=== PATIENT | female | born 1955 | race Caucasian/White ===

== ENCOUNTER 2019-11-11 07:36 | Outpatient (CLI) | payer OTHER, SELFPAY ==
--- NOTE | 2019-11-17 22:52 | SLEEP_ITS ---
Home Sleep Test DATE OF STUDY: 11/11/2019 REASON FOR THIS STUDY: Known obstructive sleep apnea syndrome, increased hypersomnolence, patient has not used CPAP because it is not working properly. HISTORY: The patient is a 64-year-old female, 5 feet 4 inches tall, weighing 232 pounds with a body mass index of 39.8. She has a history of obstructive sleep apnea syndrome dating back to at least 2008. She had severe obstructive sleep apnea syndrome with an AHI of 34.4 with poor quality sleep, loud snoring, and disturbed daytime functioning on study on March 31, 2009. A CPAP titration on April 27, 2009, showed no optimal pressure. She returns for a repeat CPAP titration on 11/03/2010, with an optimal pressure of 7 cm, which corrected the majority of events and her loud snoring. She also had problems with elevated limb movements on the initial study and the CPAP titration. The patient has not worn her device for a long time because it has not been functioning well. She is having worsening hypersomnia and snoring. She has lost 50 pounds with diet and exercise over the last year, but still has an elevated body mass index. The patient did not complete a new survey, but on her prior survey, her complaints included excessive daytime sleepiness, loud snoring, occasional anxiety, hypertension, acid reflux, and asthma. MEDICATIONS: 1. Flonase 1 spray each nostril twice a day. 2. Xanax 0.5 mg b.i.d. 3. Retin-A gel topically at bedtime. 4. Glucophage 500 mg b.i.d. with meals. 5. Cozaar 50 mg a day. 6. Albuterol 0.63 nebulizer p.r.n. 7. Symbicort 160/4.5 two puffs twice a day. 8. Aspirin 81 mg a day. HABITS: Previous history of tobacco. Caffeine is used. Alcohol, 2 drinks a week. DESCRIPTION OF THE STUDY: On the Panacea Sleepiness Scale, her score is 12. This was conducted as an unattended type 3 portable home sleep test using 4-channel monitoring including respiratory effort channel, snoring channel, oxygen saturation channel, and heart rate channel. This study was scored using [facility] guidelines. Duration of the study was 7 hours. The apnea-hypopnea index is 12.4. Oxygen desaturation index is 14.2 with a minimum desaturation of 69%. The mean saturation was 94%. She had 15 apneas. The majority of the apneas, 87% or 13 apneas were obstructive, 13% or 2 were central, and there were no mixed apneas. She had 72 hypopneas. She had 1407 snoring events. She had 114 desaturations and spent 8 minutes below 88% saturation, which is 2% of the study. Heart rate ranged from 54 to 116, elevated. IMPRESSION: 1. This home sleep study shows evidence of at least [id number] obstructive sleep apnea syndrome, G47.33, with mild number of central events, 13 events. She had constant loud snoring, 1470 events and desaturated to 69%, which is significantly low. She has a documented history of obstructive sleep apnea syndrome, which is severe in the past. Home sleep studies under represent the severity of sleep apnea as it assumes the patient is asleep the entire recording time which is not possible. The patient should have a titration in the lab as she did have some centrals 13%, but if insurance does not allow a titration in the lab, consider auto PAP. On a previous study, her optimal pressure was 7 cm. She did not have REM at that level. Consider closely auto PAP ranges. 2. Elevated body mass index of 39.8. The patient had a similar body mass index that was a little higher, 41.2 on her study in 2008. She was 240 pounds at that point, currently is 232 pounds, so she has lost weight. 3. Other medical comorbidities including hypertension, diabetes, asthma. She should not drive until daytime sleepiness resolves.
== END 2019-11-11 07:37 | disposition home or self-care (01) ==
LOC: ANHCSM 07:41
PROVIDERS: PCP Family Medicine; Visit Provider Internal Medicine Critical Care Medicine
DX: G47.33 Obstructive sleep apnea (adult) (pediatric) (principal)
CPT/HCPCS: 95806

== ENCOUNTER 2020-08-05 07:05 | Outpatient (NON) | payer OTHER, SELFPAY ==
[2020-08-05 18:30] LABS: SARS-CoV-2 RNA PCR Positive
== END 2020-08-05 07:06 ==
PROVIDERS: PCP Family Medicine; Visit Provider Physician Assistant
DX: U07.1 COVID-19 (principal)
CPT/HCPCS: 87635; C9803; U0003

== ENCOUNTER → 2020-12-13 17:05 | Outpatient (CLI) | payer OTHER, SELFPAY ==
--- NOTE | ~2020-12-13 | XR_ITS ---
XR chest 2V DATE: 12/13/2020 17:26 INDICATION: Acute exacerbation of moderate persistent asthma TECHNIQUE: 2 upright views COMPARISON: None FINDINGS: Heart size is within normal range. No hilar or mediastinal enlargement. Minimal focal infiltrate or atelectasis is suggested in the mid to upper right lung. The lungs otherw ise appear clear. No pleural effusion or pulmonary vascular congestion or pneumothorax. Diffuse idiopathic skeletal hyperostosis and mild dextro scoliosis of the thoracic spine. IMPRESSION: Focal minimal infiltrate or atelectasis in the right mid-upper lung Reviewed, dictated and finalized at location A.
== END ==
PROVIDERS: PCP Family Medicine
DX: J45.41 Moderate persistent asthma with (acute) exacerbation (principal)
CPT/HCPCS: 71046

== ENCOUNTER 2023-09-12 15:24 | Outpatient (CLI) | payer MEDICARE, SELFPAY ==
--- NOTE | ~2023-09-12 | XR_ITS ---
XR chest 2V DATE: 09/12/2023 15:36 INDICATION: Cough. Asthma. TECHNIQUE: PA and lateral views COMPARISON: December 13, 2020 2 view chest FINDINGS: Normal heart size. No hilar or mediastinal enlargement. No pulmonary infiltrate or consolid ation, pleural effusion or pulmonary vascular congestion or pneumothorax is detected. Dextroscoliosis and diffuse idiopathic skeletal hyperostosis of the thoracic spine. IMPRESSION: No active cardiopulmonary disease Reviewed, dictated and finalized at location B. DDER TENDER PEAT
== END 2023-09-12 15:25 | disposition home or self-care (01) ==
PROVIDERS: PCP Family Medicine; Visit Provider Family Medicine
DX: J45.909 Unspecified asthma, uncomplicated (principal)
CPT/HCPCS: 71046

== ENCOUNTER 2023-09-20 10:22 | Outpatient (CLI) | payer MEDICARE, SELFPAY ==
--- NOTE | 2023-09-21 11:42 | WPDPFTINT ---
PFT Procedure Performed PFT Procedure Performed Spirometry w/o Bronchodil PFT Interpretation Spirometry showed normal expiratory flow rates and a normal FEV1 to FVC ratio 73%. No post bronchodilator study carried out. The flow-volume loop is unremarkable. Impression: Spirometry within normal range.
== END 2023-09-20 10:23 | disposition home or self-care (01) ==
LOC: ANHPFT 10:23
PROVIDERS: PCP Family Medicine; Visit Provider Family Medicine
DX: J45.909 Unspecified asthma, uncomplicated (principal)
CPT/HCPCS: 94375

== ENCOUNTER 2023-09-27 11:03 | Outpatient (CLI) | payer MEDICARE, SELFPAY ==
--- NOTE | ~2023-09-27 | XR_ITS ---
Right Shoulder Technique: AP and scapular Y views were obtained. Clinical History: Pain Findings: No fracture or dislocation is seen. Osseous alignment is anatomic. There is mild degenerati ve change of the before meals and glenohumeral joints. Soft tissues are unremarkable. Impression: Mild degenerative changes, as above. Reviewed, dictated and finalized at location . [employer]NAGER Impression: Mild degenerative changes, as above.
== END 2023-09-27 11:04 | disposition home or self-care (01) ==
PROVIDERS: PCP Family Medicine; Visit Provider Orthopaedic Surgery
DX: M19.011 Primary osteoarthritis, right shoulder (principal)
CPT/HCPCS: 73030

== ENCOUNTER 2023-10-03 01:49 | Day surgery (SDC) | payer MEDICARE, SELFPAY ==
[2023-10-02 14:21] VITALS: BMI 44.6
[2023-10-03] VITALS (10 sets, daily range): BP systolic 104–142; BP diastolic 62–85; PULSE 57–84; RESP 14–18; TEMP 36.2–36.3; O2SAT 92–99; BMI 44.4
[2023-10-03 07:36] LABS: Basophils Percent Auto 0.2 % (0.2-1.2); Eosinophils Absolute Auto 0.4 K/mm3 (0-0.3); Eosinophils Percent Auto 5.4 % (0-4.4); Hematocrit 40.6 % (37.0-47.0); Hemoglobin 12.8 g/dL (12.0-15.0); Immature Granulocyte Absolute 0.02 K/mm3 (0.00-0.031); Immature Granulocyte Percent A 0.2 % (0-0.5); Lymphocytes Absolute Auto 2.61 K/mm3 (0.9-3.2); Lymphocytes Percent Auto 32.3 % (18.3-44.2); Mean Corpuscular HGB Conc 31.5 g/dl (32-36); Mean Corpuscular Hemoglobin 28.3 pg (26-34); Mean Corpuscular Volume 89.8 fl (80-100); Mean Platelet Volume 9.2 fl (7.4-10.4); Monocytes Absolute Auto 0.5 K/mm3 (0.1-0.6); Monocytes Percent Auto 6.4 % (2.6-8.5); Neutrophils Absolute Auto 4.5 K/mm3 (1.3-6.7); Neutrophils Percent Auto 55.5 % (45.5-73.1); Platelet Count Result 219 k/mm3 (150-375); Red Blood Count 4.52 M/mm3 (4.2-5.4); Red Cell Distribution Width 12.8 % (11.5-14.5); White Blood Count 8.1 K/mm3 (4.5-10.0)
[2023-10-03 07:55] LABS: Anion Gap 9 mmol/L (8-16); Blood Urea Nitrogen 22 mg/dL (7-17); Calcium 9.1 mg/dL (8.4-10.2); Carbon Dioxide 24 mmol/L (22-30); Chloride 105 mmol/L (98-107); Estimated CRCL calculation 74 ml/min; Estimated Glomerular Filt Rate > 60; Glucose 106 mg/dL (65-110); Potassium 3.9 mmol/L (3.4-5.0); Sodium 138 mmol/L (137-145)
[2023-10-03 07:56] LABS: Prothrombin Time 13.3 Seconds (11.1-14.7)
--- NOTE | 2023-10-03 10:31 | WPDHPUPDATE1 ---
History and Physical Update Update Date/Time: 10/03/23 10:31 History and Physical has been reviewed, including an updated exam of the patient. There are NO changes in the patient's condition. Risks, benefits, and alternatives have been discussed and questions answered. Patient agrees to proceed with procedure.
--- NOTE | 2023-10-03 10:32 | WPDMODSED ---
Moderate Sedation Note-Pt Data Patient Data Diagnosis: abnormal stress test, chest pain Present Complaint: none Procedure to be performed/Plan: left heart catheterization with selective left and right coronary angiography with left ventriculography and hemodynamics and possible percutaneous intervention and stent implantation Allergies Allergy/AdvReac Type Severity Reaction Status Date / Time ciprofloxacin Allergy Severe Hives Verified 10/03/23 07:31 Quinolones Allergy Severe Hives Verified 10/03/23 07:31 lisinopril Allergy Unknown Unknown Verified 10/03/23 07:31 nisoldipine Allergy Unknown Unknown Verified 10/03/23 07:31 Home Medications Medication Instructions Recorded Confirmed Type aspirin 81 mg tablet,delayed 81 mg PO HS 04/07/20 10/02/23 History release (Adult Aspirin Regimen) budesonide-formoterol HFA 160 2 puff inhalation Q12H #10.2 grams 09/20/22 10/02/23 Rx mcg-4.5 mcg/actuation aerosol inhaler (Symbicort) albuterol sulfate 90 mcg/actuation 1 puff inhalation Q4H PRN 08/16/23 10/02/23 Rx aerosol inhaler (ProAir HFA) bronchospasm #8.5 grams albuterol sulfate 2.5 mg/3 mL 2.5 mg inhalation Q4H PRN asthma 10/02/23 10/02/23 History (0.083 %) solution for nebulization alprazolam 0.5 mg tablet 0.5 mg PO TID PRN Anxiety 10/02/23 10/02/23 History clindamycin HCl 300 mg capsule 300 mg PO Q8H #30 caps 10/02/23 10/02/23 Rx losartan 50 mg tablet 50 mg PO HS 10/02/23 10/02/23 History sertraline 100 mg tablet 100 mg PO HS 10/02/23 10/02/23 History tirzepatide 2.5 mg/0.5 mL 2.5 mg subcut WEEKLY 10/02/23 10/02/23 History subcutaneous pen injector (Mounjaro) Current Medications: see list Sedation/Anesthesia: No previous sedation/anesthesia problems (including family history). [facility] Past Medical History Medical History Acute stress disorder Benign neoplasm of colon Essential (primary) hypertension Family history of malignant neoplasm of breast Hyperlipidemia, unspecified Obesity Obstructive sleep apnea (adult) (pediatric) Other obesity Prediabetes Unspecified asthma, uncomplicated Unspecified sleep apnea Varicose veins of lower extremity Surgical History Surgical History H/O: History of carpal tunnel release of both wrists Presence of right artificial knee joint Status post total knee replacement, right (~02/11/19) Family History Family History Father Family history of cardiovascular disease Asthma Mother Family history of malignant neoplasm of breast Hypertension Family history of malignant neoplasm of breast in first degree relative Other Depression Family history of allergic disorder Social History Social History Smoking packs per day: 1 Smoking cigarettes per day: 20.0 Years smoked: 8 Smoking pack-years: 8.00 Smoking status: Former smoker Tobacco type: cigarettes Smoking end date: 09/03/82 Alcohol intake: current Alcohol use details: 1-2 per month Substance use: never Do You Feel Safe in your Home?: Yes Lack of Transportation: No Lack of Food: Never True Current Housing: I Have Housing Concerned About Future Housing: No Difficulty Paying Gas/Electric Bills: No Difficulty Paying for Meds: No Currently Unemployed: No Education: Bachelor's Degree Difficulty w/ Childcare or Family Care: No Living arrangements: with family Spiritual care concerns: No Mod Sed Physical Exam Physical Exam Pre Procedural Exam: Normal: Appearance, Eyes, Ears, Nose, Neck ( thick, supple normal range of motion), Throat ( posterior hypopharynx clear, nonerythematous), Airway ( normal anatomy, no obstruction), Lungs ( clear to auscultation bilaterally), Heart Size, Heart Rate, Heart Rhythm, Neuro Exam, Liver, Extremitie
--- NOTE | 2023-10-03 11:24 | W.PM.PROC2 ---
Procedure Note - Detailed Date of Procedure 10/03/23 Pre-op Diagnosis abn stress test, SOB, fatigue, CP Post-op Diagnosis Same Procedure Performed left heart catheterization with selective left and right coronary angiography with left ventriculography and hemodynamics and selective right femoral angiography Surgeon Newton Alfaro MD Anesthesia Local and Other ( moderate sedation) Indications abnormal stress test, shortness of breath, chest pain Findings MODERATE SEDATION/ANESTHESIA ADMINISTRATION: Patient reports no prior problems with sedation/anesthesia. Please see pre-sedation noted for physical examination documentation. Sedation start time was 1046 and end time was 1113 for a total intra-service/procedure face-face time of 27 minutes. A total of 2 mg intravenous Versed and a total of 100 mcg intravenous Fentanyl in multiple divided doses was administered for moderate sedation. Moderate sedation was administered by qualified/certified observer , RN under my supervision with intra-procedure [id number] observation and management throughout the entirety of the procedure. There were no other issues or complications and patient tolerated the procedure well. See post-anesthesia documentation. CORONARY ANGIOGRAPHY: The LEFT MAIN arose from the left coronary cusp and was without angiographically significant disease. The left main then bifurcated into the left anterior descending artery and circumflex coronary artery. LEFT ANTERIOR DESCENDING ARTERY: moderate caliber vessel gives rise to moderate size 1st diagonal branch with proximal 30% stenosis and terminal vessel tortuosity without significant obstructive disease throughout the remainder of the vessel. CIRCUMFLEX CORONARY ARTERY: Moderate caliber nondominant vessel giving rise to moderate-sized 1st and 2nd obtuse marginal branches with mild luminal irregularity and mid 40% circumflex stenosis prior to continuation into the AV groove. RIGHT CORONARY ARTERY: Smaller caliber dominant vessel without angiographically significant disease give rise to small caliber posterolateral and posterior descending branches. LEFT VENTRICULOGRAPHY AND HEMODYNAMICS: Performed in the standard SHAH projection, the 5 German angled pigtail catheter was advanced retrograde across aortic valve into the cavity of the left ventricle. Left ventriculography was performed with visually estimated ejection fraction of 70-75 % without wall motion abnormalities. Pullback across the aortic valve was performed and recorded. Aortic valve: No hemodynamically significant aortic stenosis Mitral valve: no mitral regurgitation Left ventricular pressure: 131/20 mmHg Central aortic pressure: 130/60 mmHg SELECTIVE RIGHT FEMORAL ANGIOGRAPHY: Performed in the standard SHAH projection, a saline contrast mix was injected through the side-arm port of the 5 German arteriovascular access sheath which revealed the arteriotomy site to be proximal to the bifurcation in the right common femoral artery suitable for Angio-Seal closure device deployment. Subsequently, over the wire, the 5 German arteriovascular access sheath was then removed the 6 German Angio-Seal vascular closure device was then deployed easily without complication with excellent hemostasis. Manual pressure was held 5-10 minutes per protocol subsequently. Complications: None Conclusions: 1. Mild nonobstructive CAD with 30% proximal LAD and 40% mid circumflex stenosis 2. Moderate elevation left ventricular end-diastolic filling pressure consistent with diastolic dysfunction 3. Systemic hypertension 4. Preserved LV systolic function EF 70-75% without wall motion abnormalities 5. Successful deployment of 6 German Angio-Seal vascular closure device deployment to the right common femoral artery 6. No hemodynamically significant aortic stenosis or mitral valve regurgitation. Recommendations: 1. Aggressive secondary risk factor modification and optimi
[2023-10-03] MEDS: SODIUM CHLORIDE 0.9% IV 500 ML 125 ML (12:00)
== END 2023-10-03 14:55 | disposition home or self-care (01) ==
PROVIDERS: PCP Family Medicine; Visit Provider Internal Medicine Cardiovascular Disease
PROC: 4A023N7 Measurement of Cardiac Sampling and Pressure, Left Heart, Percutaneous Approach (ICD-10-PCS; CPT 93452; principal; 2023-10-03 08:30)
DX: I25.10 Atherosclerotic heart disease of native coronary artery without angina pectoris (principal); R94.39 Abnormal result of other cardiovascular function study; R07.9 Chest pain, unspecified; R06.02 Shortness of breath; I11.9 Hypertensive heart disease without heart failure; E78.5 Hyperlipidemia, unspecified; G47.33 Obstructive sleep apnea (adult) (pediatric); J45.909 Unspecified asthma, uncomplicated; R73.03 Prediabetes; Z87.891 Personal history of nicotine dependence; E66.01 Morbid (severe) obesity due to excess calories; Z68.41 Body mass index [BMI] 40.0-44.9, adult; Z79.51 Long term (current) use of inhaled steroids; Z79.82 Long term (current) use of aspirin; Z79.85 Long-term (current) use of injectable non-insulin antidiabetic drugs
CPT/HCPCS: 36415; 80048; 85025; 85610; 93458; C1760; C1887; C1894; G0269; J1644; J2250; J3010; J7040

== ENCOUNTER → 2023-11-20 00:20 | Day surgery (SDC) | payer MEDICARE, SELFPAY ==
[2023-11-09 13:14] VITALS: BMI 42.1
--- NOTE | 2023-11-09 13:28 | PC.NURSE ---
Report to the Outpatient Waiting Room, entrance under the green pavilion located off [facility], at time ___0830____ on date __11/20/23 . Planned Procedure Time: ___1030 . Time changes happen often and if your time is changed the preop area will call you the afternoon before. - You and your visitor will be asked to self-screen and do not enter if you have any COVID symptoms. - A mask is optional within the hospital at this time. Patients may have clear liquids (water, carbonated beverages, clear teas, apple juice) until 3 hours prior to surgery (0730 AM) with a maximum of 20 ounces. - No food from midnight until time of surgery - Infants may have breast milk until 4 hours before surgery, infant formula 6 hours prior to surgery. - Children will be allowed to drink immediately following surgery. If applicable, please bring a bottle or sippy cup to assist with drinking. Juice, water, soda, and popsicles are readily available. For infants on formula, please bring formula the day of surgery. Pacifiers are allowed. Take the following medications with a SIP of water the morning of surgery: _INHALERS & TYLENOL IF NEEDED DO NOT STOP ANY OF YOUR OTHER PRESCRIPTION MEDICATIONS PRIOR TO SURGERY ?EXCEPT THE FOLLOWING Medications to discontinue per LOUIE - _ASPIRIN 7 DAYS PRIOR TO SURGERY, Date to take last dose 11/12/23 Please no make-up, nail somali, hairspray, perfume, deodorant, or body powder the day of surgery. No jewelry (including any body piercings) or valuables the day of surgery, leave them at home. Please take a shower or bath the night before, or the morning of, surgery with an antibacterial soap. Wear comfortable, loose fitting clothing. Children are encouraged to wear pajamas. - Jewelry must be removed prior to entering the operating room. Rings and piercings that are not removed may be cut off. - The hospital will not accept responsibility for valuables. - Please leave all valuables, including medications, at home the day of surgery. If you are going home after surgery, a licensed tow truck driver must drive you home. - NO public transportation without another adult if you receive anesthesia. - We recommend that an adult stay with you for 24 hours following discharge. - We also recommend that you do not drive, make important decision, drink alcoholic beverages, or take any drugs that were not prescribed by your health care provider for at least 24 hours after your discharge time. For Pediatric surgeries, we recommend two adults accompany the child home. Follow any additional instructions given to you from your surgeon. If you or anyone in your household have experienced Covid symptoms in the past week, please notify your surgeon or the nurse liaison at the phone number below for possible testing. Telephone instructions given to ____PT and asked if any additional questions and then verbalized understanding. Patient advised to call surgeon office or pre surgery nurse liaison [phone] if any additional questions.
[2023-11-20] VITALS (15 sets, daily range): BP systolic 149–185; BP diastolic 68–89; PULSE 80–97; RESP 12–15; TEMP 36.1; O2SAT 94–100
--- NOTE | 2023-11-20 07:08 | WPDHPUPDATE1 ---
History and Physical Update Update Date/Time: 11/20/23 07:08 History and Physical has been reviewed, including an updated exam of the patient. There are NO changes in the patient's condition. Risks, benefits, and alternatives have been discussed and questions answered. Patient agrees to proceed with procedure.
[2023-11-20] MEDS: KETOROLAC 15 MG/ML VIAL (*BKC) IV PUSH ×2 (09:20→15:40)
[2023-11-20] MEDS: LACTATED RINGERS 1,000 ML 30 ML IV CONT ×3 (09:20→13:50)
[2023-11-20 09:22] LABS: Glucose Point of Care 102 mg/dl (65-105)
--- NOTE | 2023-11-20 09:23 | WPDANESEPPF ---
Anes - Initial Pre Proc Eval Procedure: Operation Date: 11/20/23 10:30 Proposed Procedures p Right Shoulder Arthroscopic Rotator Cuff Repair - Fermín Silveira MD Date/Time: 11/20/23 09:23 Surgeon: Fermín Silveira MD Pre Op Diagnosis: right shoulder rotator cuff tear Patient Data Age: 68 Gender: F Height: 1.63 m Weight: 111.36 kg Allergies Allergy/AdvReac Type Severity Reaction Status Date / Time ciprofloxacin Allergy Severe Hives Verified 11/16/23 10:10 Quinolones Allergy Severe Hives Verified 11/16/23 10:10 lisinopril Allergy Unknown Unknown-UNABLE Verified 11/16/23 10:10 TO RECALL nisoldipine Allergy Unknown Unknown-HAPPENED Verified 11/16/23 10:10 30 YRS AGO/UNABLE TO RECALL Home Medications Medication Instructions Recorded Confirmed Type aspirin 81 mg tablet,delayed 81 mg PO HS 04/07/20 11/16/23 History release (Adult Aspirin Regimen) losartan 50 mg tablet 50 mg PO HS 10/02/23 11/16/23 History sertraline 100 mg tablet 100 mg PO HS 10/02/23 11/16/23 History tirzepatide 2.5 mg/0.5 mL 2.5 mg subcut WEEKLY 10/02/23 11/16/23 History subcutaneous pen injector (Mounjaro) atorvastatin 40 mg tablet 40 mg PO HS #30 tabs 10/03/23 11/16/23 Rx albuterol sulfate 2.5 mg/3 mL 2.5 mg (3 mL) inhalation Q4H PRN 10/31/23 11/16/23 Rx (0.083 %) solution for nebulization asthma #180 mL acetaminophen 500 mg tablet 1,000 mg PO QID PRN Pain 11/09/23 11/16/23 History budesonide-formoterol HFA 160 2 puff inhalation Q12H PRN Wheezing 11/09/23 11/16/23 History mcg-4.5 mcg/actuation aerosol inhaler (Symbicort) alprazolam 0.5 mg tablet 0.5 mg PO DAILY 11/16/23 11/16/23 History oxycodone-acetaminophen 5 mg-325 1 - 2 tablet PO Q4-6H PRN pain #30 11/20/23 Rx mg tablet tabs Laboratory Tests 11/20/23 09:17 POC Capillary Glucose 102 mg/dl (65-105) Patient hx anesthesia problems: none Family hx anesthesia problems: none Results Review: All pre-operative results and documents have been reviewed as part of the pre-operative evaluation. [facility] Past Medical History Medical History Acute stress disorder Benign neoplasm of colon Essential (primary) hypertension Family history of malignant neoplasm of breast Hyperlipidemia, unspecified Obesity Obstructive sleep apnea (adult) (pediatric) Other obesity Prediabetes Unspecified asthma, uncomplicated Unspecified sleep apnea Varicose veins of lower extremity Surgical History Surgical History H/O: History of cardiac cath History of carpal tunnel release of both wrists Presence of right artificial knee joint Status post total knee replacement, right (~02/11/19) Family History Family History Father Family history of cardiovascular disease Asthma Mother Family history of malignant neoplasm of breast Hypertension Family history of malignant neoplasm of breast in first degree relative Other Depression Family history of allergic disorder Social History Social History Smoking packs per day: 1 Smoking cigarettes per day: 20.0 Years smoked: 8 Smoking pack-years: 8.00 Smoking status: Former smoker Tobacco type: cigarettes Second hand tobacco smoke exposure: No Smoking end date: 09/03/82 Alcohol intake: current Alcohol use details: 2/MONTH Substance use: never Substance use type: does not use Do You Feel Safe in your Home?: Yes Lack of Transportation: No Lack of Food: Never True Current Housing: I Have Housing Concerned About Future Housing: No Difficulty Paying Gas/Electric Bills: No Difficulty Paying for Meds: No Currently Unemployed: No Education: Bachelor's Degree Difficulty w/ Childcare or Family Care: No Living arrangements: with [facility]
[2023-11-20] MEDS: ceFAZolin 2 GM/D5W 50 ML 2 GM/50 ML BAG IVPB (10:35)
[2023-11-20] MEDS: BUPIVACAINE/EPINEPHRINE 0.5% 50 ML VIAL 30 ML INFILTRATE (11:06)
[2023-11-20] MEDS: EPINEPHrine HCL INJ 1 MG/ML AMPUL 3 MG IRRIGATION (11:47)
--- NOTE | 2023-11-20 12:31 | W.PM.PROC2 ---
Procedure Note - Detailed Date of Procedure 11/20/23 Pre-op Diagnosis Right shoulder rotator cuff tear Post-op Diagnosis Other (1. Rotator cuff tear, large full thickness 2. Subacromial impingement 3. Biceps tendinosis 4. Degenerative labral tear) Procedure Performed Right shoulder 1. Arthroscopic rotator cuff repair 2. Arthroscopic subacromial decompression 3. Arthroscopic labral debridement and biceps tenotomy. Surgeon Fermín Silveira MD Asphalt Paving Machine Operator Maeve Rosales PA-C Anesthesia General and Regional ( interscalene block) Findings Very large tear with mild retraction. Partial delamination, but overall good tissue quality. 3 bone tunnel repair with 9 sutures including a rip stop. Supplemental luggage tag anterior and posterior into a Swivel lock anchor laterally. Large subacromial spur treated with decompression. Extensive labral and biceps degeneration. Treated with gentle debridement and biceps tenotomy. Articular cartilage with chondrosis at the inferior posterior aspect primarily. The remaining cartilage was in good condition. Description of Procedure Preoperative antibiotics were given. An interscalene block was administered in the preoperative area. The patient was bought brought to the operating room. A general anesthetic was administered. The patient was carefully positioned in the beach chair position. The head and neck were carefully positioned. The non operative extremity was also carefully positioned. The shoulder was prepped and draped in the usual sterile fashion. Examination was performed. Standard posterior and anterior arthroscopic portals were established. Inflow achieved with the arthroscopic pump using saline and epinephrine. The glenohumeral joint was carefully inspected. The labrum was debrided and the biceps released. The subscapularis had minimal splitting. A very large supra and infraspinatus tear was confirmed with mild retraction. Attention was turned to the subacromial space. A complete bursectomy was performed. The rotator cuff and footprint were lightly debrided. A modest acromioplasty was performed. The tear configuration was carefully assessed. At this point, 3 tunnels were created at the rotator cuff. The ArthroTunneler technique was utilized. Three sutures were passed through each tunnel. All sutures were then passed through the cuff tissue. The sutures were tied arthroscopically. The fixation was slightly augmented with luggage tag sutures placed slightly posterior and slightly anterior in between the other sutures. This was inserted into a SwiveLock laterally which nicely compressed the tendon and removed final dog ears. The arthroscopic instruments were removed. The wounds were closed with 3-0 Monocryl subcuticular suture and steri strips. There were no complications. A sling was applied and the patient brought to the recovery room. Physician certified surgical tech/first assistant, Maeve Rosales PA-C, required for surgery; including patient positioning, draping, arthroscopic camera operation, maintaining instrument position, suture retrieval, wound closure, and dressing and sling placement. Implants Arthrex SwiveLock anchor. Estimated Blood Loss 20 Pathology None sent Complications No immediate complications Condition Stable Disposition PACU [facility] Billing Surgery - Charge Forward: Surgery Billing
[2023-11-20 13:01] LABS: Glucose Point of Care 148 mg/dl (65-105)
[2023-11-20] MEDS: fentaNYL CITRATE INJ (*CRX) 100 MCG/2 ML VIAL 25 MCG IV PUSH ×8 (13:03→14:38)
[2023-11-20] MEDS: oxyCODONE HCL (*CRX) 5 MG TAB IR PO (15:16)
== END | disposition home or self-care (01) ==
PROVIDERS: PCP Family Medicine; Visit Provider Orthopaedic Surgery
PROC: (CPT 29805; principal; 2023-11-20 10:30)
DX: S46.011A Strain of muscle(s) and tendon(s) of the rotator cuff of right shoulder, initial encounter (principal); M75.41 Impingement syndrome of right shoulder; M75.81 Other shoulder lesions, right shoulder; M75.21 Bicipital tendinitis, right shoulder; I10 Essential (primary) hypertension; E78.5 Hyperlipidemia, unspecified; G47.33 Obstructive sleep apnea (adult) (pediatric); R73.03 Prediabetes; J45.909 Unspecified asthma, uncomplicated; F43.0 Acute stress reaction; E66.01 Morbid (severe) obesity due to excess calories; Z68.41 Body mass index [BMI] 40.0-44.9, adult; Z79.82 Long term (current) use of aspirin; Z79.51 Long term (current) use of inhaled steroids; Z79.891 Long term (current) use of opiate analgesic; Z79.85 Long-term (current) use of injectable non-insulin antidiabetic drugs; Z98.890 Other specified postprocedural states; Z98.61 Coronary angioplasty status; Z87.891 Personal history of nicotine dependence; Z86.010 Personal history of colon polyps; Z80.3 Family history of malignant neoplasm of breast; Z82.49 Family history of ischemic heart disease and other diseases of the circulatory system; X50.0XXA Overexertion from strenuous movement or load, initial encounter
CPT/HCPCS: 29827; 29826; 82948; A4565; A9270; C1713; J0171; J0690; J1100; J1885; J2250; J2371; J2405; J2704; J3010; J7120

== ENCOUNTER 2024-05-16 11:15 | Outpatient (RCR) | payer MEDICARE, SELFPAY ==
[2024-02-25 10:05] VITALS: BP_SYST 130
--- NOTE | 2024-02-25 10:59 | OPREHPOC ---
Outpatient Therapy Plan of Care This is a Multidisciplinary Plan of Care that may contain components documented by all disciplines (PT, OT, and ST.) PT Problem 1 PT Problem #1 Knowledge Deficit PT Goal 1 Goal *indep with HEP Target Visit 8 PT Problem 2 PT Problem #2 Pain PT Goal 1 Goal 1* pain rating of 5/10 at worst 2* pt report with sleeping, awaken 2x/night due to pain 3* self assessment Quick DASH rating of 36% limitation Target Visit 8 PT Problem 3 PT Problem #3 Impaired Strength PT Goal 1 Goal increase strength of R shoulder, to improve ability to use R arm for home and self care tasks: 1* pt report tolerance to use R arm with home tasks 20 minutes active ROM In standing x 5 reps 2* flexion to 120' 3* abduction to 120' 4* IR palm to waist 5* ER- palm to back of head Target Visit 8
--- NOTE | 2024-02-25 11:00 | PTOPEVAL1 ---
Assessment and note entered by Haily Blanco, PT Evaluation Information Assessment Status Evaluation Diagnosis s/p R rotator cuff surgery Onset 11-20-23 Subjective Information since surgery, had therapy at another facility ~ 5 visits, but due to ill and having to care for him, unable to attend and stopped ~ 3 weeks ago. have not been able to keep up with the shoulder exercises, due to caring for -- have to lift him and assist, and doing all home tasks. R hand dominant; also have L shoulder pain; Activity: retired; doing all home and self care tasks; problems reaching up into cabinet and using R arm for about 10 minute light tasks- folding clothes, cooking; is not lifting; grand daughter assist with home tasks PRN; trying to get some more help for her Reported Pain Level Pain Score Self Report Additional Pain Score Comments pain range in the past week 3-8; in joint, lateral and posterior shoulder; increase pain: light use of arm ~ 10 min decrease pain: tylenol, rest, ice sometimes reinforced use of ice for pain control with sleeping, reports awaken 3-4 x/night due to pain; likes to sleep on her sides Assessment PT Clinical Summary Sera is s/p R rotator cuff surgery in November. She is R hand dominant. Self assessment with Quick DASH rating of 50% limitation in activity level. Sleeping and use of R arm with home tasks are disrupted due to shoulder pain. With the evaluation: she has decreased ROM and strength of R shoulder; pain with all motions, abduction is most painful. Skilled PT services are indicated for modalities to decrease pain, therapeutic exercises to increase shoulder ROM and strength with education for HEP and pain control. Plan of Care Interventions Electrical Stimulation,Hot Pack/Cold Pack,Manual Therapy,Neuro Re-education,Patient Education,Therapeutic Activities,Therapeutic Exercise,Ultrasound,Other Other Interventions taping PT Services Indicated Yes Treatment Frequency and 2x/wk for 8
--- NOTE | 2024-03-11 15:44 | PCPTNOTE ---
Pt called and canceled, issue. AKS.
[2024-03-19 14:20] VITALS: BP_SYST 145
--- NOTE | 2024-03-19 15:23 | OPREHPOC ---
Outpatient Therapy Plan of Care This is a Multidisciplinary Plan of Care that may contain components documented by all disciplines (PT, OT, and ST.) PT Problem 1 PT Problem #1 Knowledge Deficit PT Goal 1 Goal *indep with HEP Target Visit 8 Progress Met Comment 03-19-24 progress goal met; continue towards goal to progress HEP. PT Goal 2 Target Visit 13 PT Problem 2 PT Problem #2 Pain PT Goal 1 Goal 1* pain rating of 5/10 at worst 2* pt report with sleeping, awaken 2x/night due to pain 3* self assessment Quick DASH rating of 36% limitation Target Visit 8 Progress Partially Met Comment 03-19-24 progress goal 2 met; #1 improved to 7/10; #3 improved to 61% continue towards goals 1 & 3; PT Goal 2 Target Visit 13 PT Problem 3 PT Problem #3 Impaired Strength PT Goal 1 Goal increase strength of R shoulder, to improve ability to use R arm for home and self care tasks: 1* pt report tolerance to use R arm with home tasks 20 minutes active ROM In standing x 5 reps 2* flexion to 120' 3* abduction to 120' 4* IR palm to waist 5* ER- palm to back of head Target Visit 8 Progress Partially Met Comment 03-19-24 progress goal 1 met; improved with ROM, but goals not met; able to do 5 reps in lesser ROM continue with goals 2,3,4,5 PT Goal 2 Target Visit 13
--- NOTE | 2024-03-19 15:23 | PTOPPROG ---
Assessment and note entered by Haily Blanco, PT Progress Report Assessment Status Progress Diagnosis s/p R rotator cuff surgery Onset 11-20-23 Subjective Information shoulder is better, not as much pain, strains easily when overdo it with helping my ; have a helper coming in 3 hours/wk to assist her do heavier home tasks and care with ; still have problems with reaching overhead and feel it is still weak; doing the exercises at home; want to continue with some more therapy. Assessment PT Clinical Summary Sera has received 5 PT sessions. She called and canceled one appointment. Compared to the initial evaluation: pain rating from 3-8/10 to 0-7/10; self assessment functional score with Quick DASH from 72 to 61% limitation in activity; awaken from sleeping 3-4 x to 1-2 x/ night; light home tasks tolerance from 10 to 30 minutes; all shoulder active ROM and strength have improved; education for HEP and shoulder positioning. Active ROM of shoulder in standing: flexion 110', abduction 115, IR- reach behind back, fingers to sacrum; ER- reach to back of head with her fingers. The goals were partially met. Continue PT treatment. Plan of Care Interventions Electrical Stimulation,Hot Pack/Cold Pack,Manual Therapy,Neuro Re-education,Patient Education,Therapeutic Activities,Therapeutic Exercise,Ultrasound,Other Other Interventions taping PT Services Indicated Yes Treatment Frequency and 1-2x/wk for 8 visits Duration These treatments will address the objective and functional deficits as defined above. The patient will be advanced safely and appropriately in order for the patient to progress towards his/her prior level of function. Additional exercises will be introduced and as well as a comprehensive home exercise program upon discharge, if needed, ?to ensure carryover of functional gains achieved in the clinic. This treatment plan has been reviewed and agreement upon by the patient.
--- NOTE | 2024-03-19 15:25 | PCPTNOTE ---
CORRECTION: from evaluation of 02-25-24: mathematical error: Quick DASH should have been 72%, NOT 50% limitation in activity.
--- NOTE | 2024-04-15 13:40 | PCPTNOTE ---
Called and CX not feeling well. AKS
[2024-04-21 14:25] VITALS: BP_SYST 140
--- NOTE | 2024-04-21 15:26 | PTOPPROG ---
Assessment and note entered by Haily Blanco, PT PROGRESS REPORT Assessment Status Progress Diagnosis s/p R rotator cuff surgery Onset 11-20-23 Subjective Information shoulder is hurting more due to her fell 3x last week and she had to help him off floor; family & EMS helped lifting him; have been doing the exercises, but because of soreness, not as much; feel like need more therapy to calm the knots and pain down; PAIN: range in the past week 2-9/10; lateral & ant shoulder pain; have tightness in neck also; increase pain: using arm, lifting when he fell to floor, using arm 5 min with kitchen tasks decrease pain: sit, rest,ice, stretching awaken from sleeping 3x/night due to pain; is not taking any prescription meds, PRN tylenol Assessment PT Clinical Summary Sera has received 11 PT sessions. Compared to the last progress report: pain rating from 0-7/10 to 2-9/10; self assessment with Quick DASH from 61 to 52% limitation in activity level; reported use of arm from 30 to 20 minutes of light home tasks; awakening from sleep 1-2x to 3x/night due to pain; increased strength and active ROM of flexion and abduction motions; IR and ER ranges same. She reports more pain since having to assist her after falling to the floor 3 x in the past week. Active ROM of shoulder in standing: flexion 135', abduction 135'; IR- reach behind back, palm to sacrum and ER- reaching to back of head, fingers to back of head. The goals were partially met. Continue PT treatments. Plan of Care Interventions Hot Pack/Cold Pack,Manual Therapy,Neuro Re- education,Patient/Caregiver Education,Therapeutic Activities,Therapeutic Exercise,Ultrasound,Other Other Interventions taping, IASTM, dry needling PT Services Indicated Yes Treatment Frequency and 1-2x/wk for 6 visits Duration These treatments will address the objective and functional deficits as defined above. The patient will be advanced safely and appropriately in order for the patient to progress towards his/her prior level of function. Additional exercises will be introduced and as well
--- NOTE | 2024-04-21 15:27 | OPREHPOC ---
Outpatient Therapy Plan of Care This is a Multidisciplinary Plan of Care that may contain components documented by all disciplines (PT, OT, and ST.) PT Problem 1 PT Problem #1 Knowledge Deficit PT Goal 1 Goal / Goal Update *indep with HEP Target Visit 8 Progress Met Comment 03-19-24 progress goal met; continue towards goal to progress HEP. PT Goal 2 Target Visit 13 Progress Met Comment 04-21-24 progress met goal continue towards goal TARGET: 17 visits PT Problem 2 PT Problem #2 Pain PT Goal 1 Goal / Goal Update 1* pain rating of 5/10 at worst 2* pt report with sleeping, awaken 2x/night due to pain 3* self assessment Quick DASH rating of 36% limitation Target Visit 8 Progress Partially Met Comment 03-19-24 progress goal 2 met; #1 improved to 7/10; #3 improved to 61 % continue towards goals 1 & 3; PT Goal 2 Target Visit 13 Progress Not Met Comment 04-21-24 progress goals not met continue towards goal TARGET: 17 visits PT Problem 3 PT Problem #3 Impaired Strength PT Goal 1 Goal / Goal Update increase strength of R shoulder, to improve ability to use R arm for home and self care tasks: 1* pt report tolerance to use R arm with home tasks 20 minutes active ROM In standing x 5 reps 2* flexion to 120' 3* abdeuction to 120' 4* IR palm to waist 5* ER- palm to back of head
--- NOTE | 2024-05-20 13:09 | PCPTNOTE ---
CALLED AND CANCELED , NOT FEELING WELL. AKS
--- NOTE | 2024-05-22 13:03 | PCPTNOTE ---
This treatment is being continued on visit number [id number]. Please see documentation on both accounts to view progress. Completed interventions, outcomes, and problems have been marked as Inactive to facilitate the copying of the Care plan routine for recurring accounts.
== END 2024-05-21 14:38 | disposition home or self-care (01) ==
LOC: ANHPT 11:15
PROVIDERS: PCP Family Medicine; Visit Provider Orthopaedic Surgery
DX: Z98.890 Other specified postprocedural states (principal)
CPT/HCPCS: 97014; 97035; 97110; 97140; 97161; 97530; G0283

== ENCOUNTER 2024-07-17 10:00 | Outpatient (RCR) | payer MEDICARE, SELFPAY ==
[2024-05-21 08:42] VITALS: BP_SYST 140
--- NOTE | 2024-05-22 13:04 | PCPTNOTE ---
This treatment is being continued from visit number [id number]. Please see documentation on both accounts to view progress. Completed interventions, outcomes, and problems have been marked as Inactive to facilitate the copying of the Care plan routine for recurring accounts.
--- NOTE | 2024-05-27 12:48 | OPREHPOC ---
Outpatient Therapy Plan of Care This is a Multidisciplinary Plan of Care that may contain components documented by all disciplines (PT, OT, and ST.) PT Problem 1 PT Problem #1 Knowledge Deficit PT Goal 1 Goal / Goal Update *indep with HEP Target Visit 8 Progress Met PT Goal 2 Target Visit 13 Progress Met PT Problem 2 PT Problem #2 Pain PT Goal 1 Goal / Goal Update 1* pain rating of 5/10 at worst 2* pt report with sleeping, awaken 2x/night due to pain Target Visit 22 Progress Partially Met PT Goal 2 Goal / Goal Update QuickDASH score greater than 36% Target Visit 22 Progress Not Met PT Problem 3 PT Problem #3 Impaired Strength PT Goal 1 Goal / Goal Update increase strength of R shoulder, to improve ability to use R arm for home and self care tasks: 1* pt report tolerance to use R arm with home tasks 20 minutes active ROM In standing x 5 reps 2* flexion to 120' 3* abduction to 120' 4* IR palm to waist 5* ER- palm to back of head Target Visit 16 Progress Met PT Goal 2 Target Visit 13 Progress Partially Met PT Problem 4 PT Problem #4 Impaired Strength PT Goal 1 Goal / Goal Update Improve R shoulder external rotation strenght to 4 +/5 to improve stability with self care and stability of shoulder for overhead reaching Target Visit 22 PT Goal 2 Goal / Goal Update Patient will demonstrate ability to perform 40# floor to chest lift for transfer of 's heel chair without increased shoulder pain for continued ADL function and care of spouse Target Visit 22
--- NOTE | 2024-05-27 12:49 | PTOPPROG ---
Assessment and note entered by Santiago Brito, PT Evaluation Information Assessment Status Progress Diagnosis s/p R rotator cuff surgery Onset 11-20-23 Subjective Information Patient reports that she has been taking care of her and although she has seen improvement she is tasked with taking care of him including lifting his chair into and out of the car. States that her shoulder has improved, but with the load that she needs to carry to take care of him, she frequently strains her shoulder and does not have the strength she feels she needs to do it properly . Would like to continue therapy until MD follow up in 1 month. Assessment PT Clinical Summary Patient has seen significant improvement over the last month in shoulder ORm but still having pain at end range. She continues to demonstrate weakness with pain in external rotation and flexion, both of which present with some current instability in functional activity. 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 Needs to be able to lift him and his mobility chair with reduced risk of injury. Will continue to benefit form skilled therapy to address these deficits until follow up with MD. Plan of Care Interventions Therapeutic Exercise,Other,Ultrasound,Patient/ Caregiver Education,Manual Therapy,Neuro Re- education,Therapeutic Activities,Hot Pack/Cold Pack Other Interventions taping, IASTM, dry needling PT Services Indicated Yes Treatment Frequency and 1-2x/week for 6 visits Duration These treatments will address the objective and functional deficits as defined above. The patient will be advanced safely and appropriately in order for the patient to progress towards his/her prior level of function. Additional exercises will be introduced and as well as a comprehensive home exercise program upon discharge, if needed, ?to ensure carryover of functional gains achieved in the clinic. This treatment plan has been reviewed and agreement upon by the patient.
--- NOTE | 2024-06-13 09:26 | PCPTNOTE ---
Pt needed to cancel to be at appt with .
--- NOTE | 2024-06-16 08:52 | OPREHPOC ---
Outpatient Therapy Plan of Care This is a Multidisciplinary Plan of Care that may contain components documented by all disciplines (PT, OT, and ST.) PT Problem 1 PT Problem #1 Knowledge Deficit PT Goal 1 Goal / Goal Update *indep with HEP Target Visit 8 Progress Met PT Goal 2 Target Visit 13 Progress Met PT Problem 2 PT Problem #2 Pain PT Goal 1 Goal / Goal Update 1* pain rating of 5/10 at worst 2* pt report with sleeping, awaken 2x/night due to pain Target Visit 26 Progress Partially Met PT Goal 2 Goal / Goal Update QuickDASH score greater than 36% Target Visit 26 Progress Not Met PT Problem 3 PT Problem #3 Impaired Strength PT Goal 1 Goal / Goal Update increase strength of R shoulder, to improve ability to use R arm for home and self care tasks: 1* pt report tolerance to use R arm with home tasks 20 minutes active ROM In standing x 5 reps 2* flexion to 120' 3* abdeuction to 120' 4* IR palm to waist 5* ER- palm to back of head Target Visit 16 Progress Met PT Goal 2 Target Visit 13 Progress Partially Met PT Problem 4 PT Problem #4 Impaired Strength PT Goal 1 Goal / Goal Update Improve R shoulder external rotation strenght to 4 +/5 to improve stability with self care and stability of shoulder for overhead reaching Target Visit 26 PT Goal 2 Goal / Goal Update Patient will demonstrate ability to perform 40# floor to chest lift for transfer of 's heel chair without increased shoulder pain for continued ADL function and care of spouse Target Visit 26
--- NOTE | 2024-06-16 08:52 | PTOPPROG ---
Assessment and note entered by Santiago Brito, PT Evaluation Information Assessment Status Progress Diagnosis s/p R rotator cuff surgery Onset 11-20-23 Subjective Information Reports that she was doing a lot better up until the last week. She brought her home this weekend and he had been in Rehab for the last few weeks. Reports that she feels there is a grinding in the shoulder that continues to cause pain. She is unable to lay on her right side right now because pressure still causes her a lot of pain. Worried that taking care of her has continued to add a lot of stress to her shoulder and she is worried that she has re-aggravated it. Assessment PT Clinical Summary Patient has shown some minor regression in her objective measures since her last progress note. She has been very active in care for her who suffered CVA and relies a lot on the use of her shoulder for lifting and daily activity. This has also limited her time for attending therapy and she has had difficulty getting her visits in within the timeline. She does have a history of positive response to therapy and will continue to benefit from skilled therapy to work through remaining deficits. Follows up with MD in 1 week. Plan of Care Interventions Therapeutic Exercise,Other,Ultrasound,Patient/ Caregiver Education,Manual Therapy,Neuro Re- education,Therapeutic Activities,Hot Pack/Cold Pack Other Interventions taping, IASTM, dry needling PT Services Indicated Yes Treatment Frequency and 2x/week for 8 visits Duration These treatments will address the objective and functional deficits as defined above. The patient will be advanced safely and appropriately in order for the patient to progress towards his/her prior level of function. Additional exercises will be introduced and as well as a comprehensive home exercise program upon discharge, if needed, ?to ensure carryover of functional gains achieved in the clinic. This treatment plan has been reviewed and agreement upon by the patient.
--- NOTE | 2024-06-26 15:22 | PCPTNOTE ---
Pt called to cancel her appointment as her is in the hospital.
--- NOTE | 2024-07-02 15:31 | PCPTNOTE ---
No call no show, reason unknown. ( /CVA) AKSharonda.
--- NOTE | 2024-07-17 11:12 | OPREHPOC ---
Outpatient Therapy Plan of Care This is a Multidisciplinary Plan of Care that may contain components documented by all disciplines (PT, OT, and ST.) PT Problem 1 PT Problem #1 Knowledge Deficit PT Goal 1 Goal / Goal Update *indep with HEP Target Visit 8 Progress Met PT Goal 2 Target Visit 13 Progress Met PT Problem 2 PT Problem #2 Pain PT Goal 1 Goal / Goal Update 1* pain rating of 5/10 at worst 2* pt report with sleeping, awaken 2x/night due to pain Target Visit 26 Progress Partially Met PT Goal 2 Goal / Goal Update QuickDASH score greater than 36% Target Visit 26 Progress Met PT Problem 3 PT Problem #3 Impaired Strength PT Goal 1 Goal / Goal Update increase strength of R shoulder, to improve ability to use R arm for home and self care tasks: 1* pt report tolerance to use R arm with home tasks 20 minutes active ROM In standing x 5 reps 2* flexion to 120' 3* abdeuction to 120' 4* IR palm to waist 5* ER- palm to back of head Target Visit 16 Progress Met PT Goal 2 Target Visit 13 Progress Partially Met PT Problem 4 PT Problem #4 Impaired Strength PT Goal 1 Goal / Goal Update Improve R shoulder external rotation strenght to 4 +/5 to improve stability with self care and stability of shoulder for overhead reaching Target Visit 26 Progress Met PT Goal 2 Goal / Goal Update Patient will demonstrate ability to perform 40# floor to chest lift for transfer of 's heel chair without increased shoulder pain for continued ADL function and care of spouse Switched focus to activity avoidance to prevent reinjury. Patient now has mobility van. Target Visit 26 Progress Not Met
--- NOTE | 2024-07-17 11:12 | PTOPDC ---
Assessment and note entered by Santiago Brito, PT Evaluation Information Assessment Status Progress Diagnosis s/p R rotator cuff surgery Onset 11-20-23 Subjective Information Reports that her is back in the hospital. At rest she has no pain, but reaching away from her body and over her head she continues to struggle a but but she had not had any of the pinching pain that she had for a while. She finally received a mobility van last week to reduce her need for lifting a wheelchair into her car. She still has some discomfort with strapping in his wheelchair but no longer has to lift it. She demonstrated understanding of need for activity avoidance in which she leverages her arm away from her body when reaching and lifting. 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 Reported Pain Level Pain Score 0: Self Report Assessment PT Clinical Summary Patient has made progress noted in ROM and strength this date. She continues to show some limitation with long lever arm activity including reaching away from her body and over her head. With the implementation of the Mobility van she should be able to reduce chair lifting need for . She will still need to be very cautious with transfers. Limitations at this time in motion appears to be inflammatory in nature as she can perform the contractions well but has pain with break testing of muscles at higher levels. We talked extensively about activity avoidance, scapular initiation for overhead activity, and continued rotator cuff strengthening for technician terminal and repeater shoulder stability. Patient demonstrated understanding and agreement of plan and down the road shoulder she be able to control ADL shoulder aggravation she could benefit form continued progression of strengthening should baseline improve. Patient will be discharged at this time with MD follow up on 07/23/24. Plan of Care PT Services Indicated D/C to [facility]
== END 2024-07-25 10:49 | disposition home or self-care (01) ==
LOC: ANHPT 10:00
PROVIDERS: PCP Family Medicine; Visit Provider Orthopaedic Surgery
DX: Z98.890 Other specified postprocedural states (principal)
CPT/HCPCS: 97014; 97032; 97035; 97110; 97140; 97530; G0283

== ENCOUNTER 2025-06-30 11:16 | Outpatient (CLI) | payer MEDICARE, SELFPAY ==
--- NOTE | ~2025-06-30 | XR_ITS ---
EXAMINATION: XR knee LT min 4V, 06/30/2025 11:21 CDT HISTORY: M17.12 - Unilateral primary osteoarthritis, left knee COMPARISON: No comparisons available. Findings: No acute fracture or malalignment. Severe tricompartmental degenerative changes with small effusion Soft tissues unremarkable. Impression: No acute fracture or malalignment. Reviewed, dictated and finalized at location P. Impression: No acute fracture or malalignment.
== END 2025-06-30 11:17 | disposition home or self-care (01) ==
LOC: MICIMG 11:18
PROVIDERS: PCP Family Medicine; Visit Provider Orthopaedic Surgery
DX: M17.12 Unilateral primary osteoarthritis, left knee (principal)
CPT/HCPCS: 73564

== ENCOUNTER 2025-08-10 15:06 | Outpatient (CLI) | payer MEDICARE, SELFPAY ==
--- NOTE | ~2025-08-10 | XR_ITS ---
EXAMINATION: XR foot RT min 3V, 08/10/2025 15:12 VB NET PROGRAMMER HISTORY: M79.674 - Pain in right toe(s) COMPARISON: No comparisons available. Findings: No acute fracture or malalignment. Severe degenerative changes of the first metatarsal phalangeal joint. Soft tissues unremarkable. Impression: No acute fracture or malalignment. Reviewed, dictated and finalized at location P. NET PROGRAMMER Impression: No acute fracture or malalignment.
== END 2025-08-10 15:07 | disposition home or self-care (01) ==
PROVIDERS: PCP Family Medicine; Visit Provider Family Medicine
DX: M79.674 Pain in right toe(s) (principal)
CPT/HCPCS: 73630